=== PATIENT | female | born 1950 | race Hispanic/Latino ===

== ENCOUNTER → 2017-04-04 | Day surgery (SDC) | payer MEDICARE ==
[2017-03-31 14:33] LABS: BASOPHILS # (AUTO) 0.1 (0.0-0.1); BASOPHILS % 0.7 % (0.0-1.0); EOSINOPHILS # (AUTO) 0.2 (0.0-0.4); EOSINOPHILS % 1.9 % (0.0-6.0); HEMATOCRIT 40.3 % (34.2-44.1); HEMOGLOBIN 13.3 g/dL (12.0-16.0); LYMPHOCYTES # (AUTO) 2.4 (1.0-3.2); LYMPHOCYTES % 26.7 % (18.0-39.1); MEAN CORPUSCULAR HEMOGLOBIN 31.3 pg (28-32); MEAN CORPUSCULAR VOLUME 94.8 fL (81-99); MONOCYTES # (AUTO) 0.6 (0.2-0.8); MONOCYTES % 6.8 % (4.4-11.3); NEUTROPHILS # (AUTO) 5.8 (2.1-6.9); NEUTROPHILS % 63.6 % (38.7-80.0); PLATELET COUNT 283 x10e3/uL (140-360); RED BLOOD COUNT 4.25 x10e6/uL (3.6-5.1); RED CELL DISTRIBUTION WIDTH 12.2 % (11.7-14.4)
[2017-03-31 14:56] LABS: ANION GAP 11.9 mmol/L (8-16); BLOOD UREA NITROGEN 9 mg/dL (7-26); BUN/CREATININE RATIO 13 (6-25); CALCIUM 9.7 mg/dL (8.4-10.2); CARBON DIOXIDE 29 mmol/L (22-29); CHLORIDE 104 mmol/L (98-107); CREATININE, SERUM 0.69 mg/dL (0.57-1.11); EST GLOMERULAR FILTRATION RATE > 60 ML/MIN (60-); GLUCOSE 125 mg/dL (74-118); POTASSIUM 3.9 mmol/L (3.5-5.1); SODIUM 141 mmol/L (136-145)
--- NOTE | 2017-03-31 15:24 | Diagnostic Imaging Report ---
PROCEDURE: Frontal and lateral views of the chest. COMPARISON: Patients [facility], , CHEST 2 VIEWS, 02/19/2016, 12:53. INDICATIONS: PREOP FINDINGS: Lines/tubes: None. Lungs: The lungs are well inflated and clear. There is no evidence of pneumonia or pulmonary edema. Pleura: There is no pleural effusion or pneumothorax. Heart and mediastinum: The heart and the mediastinum are normal. Bones: No acute bony abnormality. Degenerative disc changes in the thoracic spine. IMPRESSION: 1. No acute cardiopulmonary abnormalities Eyal Sigala M.D. Dictated by: Eyal Sigala M.D. on 03/31/2017 at 15:32 Electronically approved by: Eyal Sigala M.D. on 03/31/2017 at 15:32
[~2017-04-04] MED LIST: ALIGN4 MG; ASPIR 8181 MG PO; ATENOLOL25 MG PO; BUPIVACAINE 0.25%/EPI 30ML SDV INJ ONE; CALCIUM600 MG PO; DEXAMETHASONE SOD PHOS INJ 4 MG/ML VIAL IV ONE; FENTANYL CITRATE/PF 100MCG/2 ML INJ ONE; FISH OIL500 MG PO; KETOROLAC TROMETHAMINE 30 MG/ML VIAL IV ONE; LIDOCAINE HCL 2% LOCAL INJ 5 ML SDV VIAL INJ ONE; LIDOCAINE PATCH TD; LORAZEPAM1 MG PO; METAXALONE800 MG PO; MIDAZOLAM HCL 2 MG/2 ML VIAL ONE; MOVE FREE PO; NEXIUM PO; ONDANSETRON HCL INJ 2 MG/ML VIAL IV ONE; PROPOFOL IV EMULSION 10 MG/ML 20 ML VIAL IV ONE; SEVOFLURANE INHAL SOLN 250 ML PEN BTL INH ONE; TYLENOL ARTHRITIS PO; VITAMIN B COMP1 EAC1 PO; ZANTAC; [UNRECOGNIZED DRUG - MIXTURE] TOP
--- NOTE | 2017-04-04 16:34 | Operative Report ---
DATE OF PROCEDURE: April 04, 2017 PREOPERATIVE DIAGNOSIS: Mass of the left upper thigh. POSTOPERATIVE DIAGNOSIS: Mass of the left upper thigh. OPERATION PERFORMED: Excision of mass of the left upper thigh. ANESTHESIA: General. COMPLICATIONS: None. ESTIMATED BLOOD LOSS: Minimal. DESCRIPTION OF PROCEDURE: With the patient lying in bed in the supine position under good general anesthesia, the left thigh was prepped with Betadine solution and draped in the usual manner. The area overlying the mass in the left thigh was then infiltrated with 0.25% Marcaine with epinephrine and the incision was made, was carried down through the subcutaneous tissue and immediately, a well-encapsulated multilobulated mass was encountered, which was slowly and carefully from all of the surrounding structures and totally and completely removed and sent for pathological examination. Hemostasis was ascertained and the wound was then closed in layers. The subcutaneous tissue was approximated with interrupted sutures of 3-0 Vicryl and the skin was closed with subcuticular 5-0 Vicryl. Benzoin, Steri-Strips, and dressings were applied. The sponge, lap, and needle count was correct. The patient tolerated the procedure well and returned to the recovery room in stable condition. Job#: [id number] SAK
== END | disposition home or self-care (01) ==
LOC: OR 08:11
PROVIDERS: ATTEND Surgery
DX: D17.24 Benign lipomatous neoplasm of skin and subcutaneous tissue of left leg (principal); I10 Essential (primary) hypertension; Z01.810 Encounter for preprocedural cardiovascular examination; Z01.812 Encounter for preprocedural laboratory examination; Z01.818 Encounter for other preprocedural examination; Z79.82 Long term (current) use of aspirin
CPT/HCPCS: 11403; 12032; 36415; 71020; 80048; 85025; 88304; 93005; J1100; J1885; J2001; J2250; J2405

== ENCOUNTER → 2017-05-26 | Day surgery (SDC) | payer MEDICARE ==
[2017-05-22 14:14] LABS: BASOPHILS # (AUTO) 0.1 (0.0-0.1); BASOPHILS % 0.7 % (0.0-1.0); EOSINOPHILS # (AUTO) 0.2 (0.0-0.4); EOSINOPHILS % 2.5 % (0.0-6.0); HEMATOCRIT 40.5 % (34.2-44.1); HEMOGLOBIN 13.1 g/dL (12.0-16.0); LYMPHOCYTES # (AUTO) 2.4 (1.0-3.2); LYMPHOCYTES % 32.3 % (18.0-39.1); MEAN CORPUSCULAR HEMOGLOBIN 31.6 pg (28-32); MEAN CORPUSCULAR HGB CONC 32.3 g/dL (31-35); MEAN CORPUSCULAR VOLUME 97.8 fL (81-99); MONOCYTES # (AUTO) 0.6 (0.2-0.8); MONOCYTES % 7.6 % (4.4-11.3); NEUTROPHILS # (AUTO) 4.2 (2.1-6.9); NEUTROPHILS % 56.6 % (38.7-80.0); PLATELET COUNT 265 x10e3/uL (140-360); RED BLOOD COUNT 4.14 x10e6/uL (3.6-5.1); RED CELL DISTRIBUTION WIDTH 12.4 % (11.7-14.4)
--- NOTE | 2017-05-22 14:28 | Diagnostic Imaging Report ---
PROCEDURE: Frontal and lateral views of the chest. COMPARISON: 03/31/2017 INDICATIONS: PT HAS NO CHEST COMPLAINTS PRE OP FINDINGS: Lines/tubes: None. Lungs: The lungs are well inflated and clear. There is no evidence of pneumonia or pulmonary edema. Pleura: There is no pleural effusion or pneumothorax. Heart and mediastinum: The heart and the mediastinum are normal. Bones: No acute bony abnormality. Multilevel degenerative changes of the thoracic spine. IMPRESSION: 1. No acute cardiopulmonary disease. Dictated by: Rigo Ghotra M.D. on 05/22/2017 at 14:37 Electronically approved by: Rigo Ghotra M.D. on 05/22/2017 at 14:37
[2017-05-22 14:33] LABS: BLOOD UREA NITROGEN 7 mg/dL (7-26); BUN/CREATININE RATIO 11 (6-25); CALCIUM 9.4 mg/dL (8.4-10.2); CARBON DIOXIDE 28 mmol/L (22-29); CHLORIDE 109 mmol/L (98-107); CREATININE, SERUM 0.66 mg/dL (0.57-1.11); EST GLOMERULAR FILTRATION RATE > 60 ML/MIN (60-); GLUCOSE 129 mg/dL (74-118); SODIUM 143 mmol/L (136-145)
[~2017-05-26] MED LIST changes: +AMLODIPINE BESYL5 MG PO; +ATORVASTATIN CA10 MG PO; +BUPIVACAINE 0.25% 30ML SDV INJ ONE; -BUPIVACAINE 0.25%/EPI 30ML SDV INJ ONE; -DEXAMETHASONE SOD PHOS INJ 4 MG/ML VIAL IV ONE; +DEXAMETHASONE SOD PHOS INJ 4 MG/ML VIAL ONE; +GLYCOPYRROLATE INJ 1MG/ 5 ML SYR ONE; -KETOROLAC TROMETHAMINE 30 MG/ML VIAL IV ONE; +LIDOCAINE 1% W/EPINEPHRINE 20 ML VIAL ONE; +LIDOCAINE HCL 1% LOCAL INJ 20 ML VIAL ONE; +METOCLOPRAMIDE HCL 10 MG/2ML VIAL ONE; +NEOSTIGMINE 5 MG/5ML SYR ONE; -ONDANSETRON HCL INJ 2 MG/ML VIAL IV ONE; +ONDANSETRON HCL INJ 2 MG/ML VIAL ONE; -PROPOFOL IV EMULSION 10 MG/ML 20 ML VIAL IV ONE; +PROPOFOL IV EMULSION 10 MG/ML 20 ML VIAL ONE; +ROCURONIUM BROMIDE 10 MG/ML 5ML VIAL ONE; -SEVOFLURANE INHAL SOLN 250 ML PEN BTL INH ONE; +SEVOFLURANE INHAL SOLN 250 ML PEN BTL ONE; -ZANTAC; +ZANTAC PO
--- OUTSIDE RECORDS SUMMARY | 2017-05-26 09:13 | XMS REPORT ---
Author Author [facility] Address Unknown Phone Unavailable Care Team Providers Care [employer] Name Role Phone WHITNEY HORVATH Unavailable Unavailable Problems This patient has no known problems. Allergies, Adverse Reactions, Alerts This patient has no known allergies or adverse reactions. Medications This patient has no known medications. Results Test Description Test Time Test Comments Text Results Atomic Results Result Comments CHEST 2 VIEWS [place] [address] Patient Name: SAMUEL KESSLER MR #: [id number] : 1950 Age/Sex: 66/F Req #: [id number] Adm Physician: Ordered by: WHITNEY HORVATH MD Report #: [id number] Location: OR Room/Bed: Procedure: [id number] DX/CHEST 2 VIEWS Exam Date: 05/22/17 Exam Time: 1350 REPORT STATUS: Signed PROCEDURE: Frontal and lateral views of the chest. COMPARISON: 03/31/2017 INDICATIONS: PT HAS NO CHEST COMPLAINTS PRE OP FINDINGS: Lines/tubes: None. Lungs: The lungs are well inflated and clear. There is no evidence of pneumonia or pulmonary edema. Pleura: There is no pleural effusion or pneumothorax. Heart and mediastinum: The heart and the mediastinum are normal. Bones: No acute bony abnormality. Multilevel degenerative changes of the thoracic spine. IMPRESSION: 1. No acute cardiopulmonary disease. Dictated by: Namita Ghotra M.D. on 05/22/2017 at 14:37 Electronically approved by: Namita Ghotra M.D. on 05/22/2017 at 14:37 Dictated By: NAMITA GHOTRA MD 36 Transcribed By: JOSEE on 05/22/17 143 COPY TO: WHITNEY HORVATH MD CHEST 2 VIEWS [place] [address] Patient Name: SAMUEL KESSLER MR #: [id number] : 1950 Age/Sex: 66/F Req #: [id number] Adm Physician: Ordered by: WHITNEY HORVATH MD Report #: [id number] Location: OR Room/Bed: Procedure: [id number] DX/CHEST 2 VIEWS Exam Date: 03/31/17 Exam Time: 1430 REPORT STATUS: Signed PROCEDURE: Frontal and lateral views of the chest. COMPARISON: [facility], , CHEST 2 VIEWS, 2015, 12:53. INDICATIONS: PREOP FINDINGS: Lines/tubes: None. Lungs: The lungs are well inflated and clear. There is no evidence of pneumonia or pulmonary edema. Pleura: There is no pleural effusion or pneumothorax. Heart and mediastinum: The heart and the mediastinum are normal. Bones: No acute bony abnormality. Degenerative disc changes in the thoracic spine. IMPRESSION: 1. No acute cardiopulmonary abnormalities Scottie Sigala M.D. Dictated by: Scottie Sigala M.D. on 03/31/2017 at 15:32 Electronically approved by: Scottie Sigala M.D. on 03/31/2017 at 15:32 Dictated By: SCOTTIE SIGALA MD 31 Transcribed By: JOSEE on 03/31/171531 COPY TO: WHITNEY HORVATH MD MRI SPINE THORACIC WO [place] [address] Patient Name: SAMUEL KESSLER MR #: [id number] : 1950 Age/Sex: 66/F Req #: [id number] Adm Physician: Ordered by: WHITNEY HORVATH MD Report #: [id number] Location: MRI Room/Bed: Procedure: [id number] MRI/MRI SPINE THORACIC WO Exam Date: 03/21/17 Exam Time: 1420 REPORT STATUS: Signed Examination: MRI SPINE THORACIC WITHOUT CONTRAST History: Back pain. Comparison studies: None Technique: Sagittal T1 and STIR; axial, sagittal and coronal T2 Intravenous contrast: None. Findings: Alignment: Normal kyphosis. No scoliosis. Thoracic cord: Normal in signal and morphology. The tip of the conus is at T12-L1. Soft tissues: There is a 2.9 x 2.6 x 2.3 cm ( superoinferior x anteroposterior x transverse dimensions) T1, T2 and STIR hypointense lesion of the medial limb of left adrenal gland. Paraspinal muscles: Preserved. No volume loss. Vertebrae: No compression fractures , infection or neoplasm. There is a rounded, 10mm T1 and T2 hyperintense and STIR hypointense T9 vertebral body lesion. There is no associated erosion of the adjacent endplate or expansion of the bone. Degenerative changes: T7-T8: Diffuse disc bulge. No foraminal or canal stenosis. The remaining thoracic levels demonstrate no degenerative disc or foraminal or canal stenosis. IMPRESSION: 1. A 2.9 x 2.6 x 2.3 cm lesion of the medial limb of the left adrenal gland. A contrast enhanced CT of the abdomen is recommended for further evaluation. 2. Mild degenerative changes at T7- T8 without canal stenosis. Signed by: Dr. Adrian Sherwood M.D. on 2016 7:37 AM Dictated By: ADRIAN EASLEY MD 6 Transcribed By: MADDI on 03/22/17736 COPY TO: WHITNEY HORVATH MD MRI SPINE LUMBAR WO [place] [address] Patient Name: SAMUEL KESSLER MR #: [id number] : 1950 Age/Sex: 66/F Req #: [id number] Adm Physician: Ordered by: WHITNEY HORVATH MD Report #: [id number] Location: MRI Room/Bed: Procedure: [id number] MRI/MRI SPINE LUMBAR WO Exam Date: 03/21/17 Exam Time: 1420 REPORT STATUS: Signed Examination: MRI SPINE LUMBAR WITHOUT CONTRAST History: Nonradiating back pain. Comparison studies: None Technique: Sagittal, coronal and axial T2 , sagittal T1 and STIR; axial spin density oblique. Findings: Number of lumbar vertebral bodies: Five. Alignment: Normal lordosis. No scoliosis. Soft tissues: No T2 hyperintense inflammatory changes. Posterior paraspinal soft tissues and muscles: No abnormality. Lower thoracic cord: Normal in signal and morphology. The tip of the conus is at T12-L1 . Cauda equina: No masses. No arachnoiditis. Vertebrae: No fractures, infection or neoplasm. There is a rounded, 11mm T1 and T2 hyperintense and STIR hypointense L3 vertebral body lesion. There is no associated erosion of the adjacent endplate or expansion of the bone. Degenerative changes: L1-L2: No abnormalities. L2-L3: Diffuse disc bulge. No foraminal or canal stenosis. L3-L4: No abnormalities. L4-L5: Diffuse bulge and mild bilateral facet degenerative. No canal stenosis. L5-S1: Asymmetric to the right and moderate bilateral facet arthropathy results in moderate right and mild left neural foraminal narrowing. No canal stenosis. IMPRESSION: 1. Mild degenerative changes at L2-L3, L4-L5 and L5-S1 without canal stenosis. 2. Moderate right foraminal narrowing at L5-S1. 3. 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 Signed by: Dr. Adrian Sherwood M.D. on 03/22/2017 7:43 AM Dictated By: ADRIAN EASLEY MD [id number] Transcribed By: MADDI on 03/22/1743 COPY TO: WHITNEY HORVATH MD
--- NOTE | 2017-05-26 11:06 | Operative Report ---
DATE OF PROCEDURE: May 26, 2017 PREOPERATIVE DIAGNOSIS: Back masses times 3, probable lipomas. POSTOPERATIVE DIAGNOSIS: Back masses times 3, probable lipomas. OPERATION PERFORMED: Excision of back masses times 3. ANESTHESIA: General. COMPLICATIONS: None. ESTIMATED BLOOD LOSS: Minimal. DESCRIPTION OF PROCEDURE: With the patient lying in bed in the prone position, under general anesthesia, the back was prepped with Betadine solution and draped in the usual manner. There were 3 separate masses, 1 on the left mid back and 2 on the right lateral back that were palpable. The 3 masses were done in similar fashion. An incision was made. It was carried down into the subcutaneous tissue. The mass was identified and then totally and completely encircled and removed. These were poorly encapsulated, lipomatous masses that were resected and sent for pathological examination. Perfect hemostasis was ascertained. All wounds were then infiltrated with 1/4 percent Marcaine solution. The subcutaneous tissue was approximated with 3-0 Vicryl, and the skin was closed with subcuticular 5-0 Vicryl. Benzoin, Steri-Strips and dressings were applied. Patient tolerated all 3 procedures well and returned to the recovery room in stable condition. Job#: [id number]
== END | disposition home or self-care (01) ==
LOC: OR 09:10
PROVIDERS: ATTEND Surgery
DX: D17.1 Benign lipomatous neoplasm of skin and subcutaneous tissue of trunk (principal); I10 Essential (primary) hypertension; E78.5 Hyperlipidemia, unspecified; R00.1 Bradycardia, unspecified; M54.2 Cervicalgia; M54.9 Dorsalgia, unspecified; K21.9 Gastro-esophageal reflux disease without esophagitis; F41.9 Anxiety disorder, unspecified; Z01.810 Encounter for preprocedural cardiovascular examination; Z01.812 Encounter for preprocedural laboratory examination; Z01.818 Encounter for other preprocedural examination
CPT/HCPCS: 11400 ×3; 12031; 36415 ×2; 71046; 80048; 84132; 85025; 88304; 93005; J1100; J2001; J2250; J2405; J2765

== ENCOUNTER → 2018-08-17 | Day surgery (SDC) | payer MEDICARE ==
[~2018-08-17] MED LIST changes: -BUPIVACAINE 0.25% 30ML SDV INJ ONE; +BUSPIRONE HCL5 MG PO; +CARAFATE1 GM/10 ML PO; +CHROMIUM PICO200 MC1 PO; -DEXAMETHASONE SOD PHOS INJ 4 MG/ML VIAL ONE; +DEXILANT30 MG PO; +ESTRACE42.5 GM TOP; -GLYCOPYRROLATE INJ 1MG/ 5 ML SYR ONE; -LIDOCAINE 1% W/EPINEPHRINE 20 ML VIAL ONE; -LIDOCAINE HCL 1% LOCAL INJ 20 ML VIAL ONE; -METOCLOPRAMIDE HCL 10 MG/2ML VIAL ONE; -NEOSTIGMINE 5 MG/5ML SYR ONE; -ONDANSETRON HCL INJ 2 MG/ML VIAL ONE; -ROCURONIUM BROMIDE 10 MG/ML 5ML VIAL ONE; -SEVOFLURANE INHAL SOLN 250 ML PEN BTL ONE; +[UNRECOGNIZED DRUG - OTHER] PO; +[UNRECOGNIZED DRUG - OTHER] TOP; +[UNRECOGNIZED DRUG - OTHER] TOP; +[UNRECOGNIZED DRUG - OTHER] TOP
[2018-08-17 10:00] VITALS: BP 141/71
== END | disposition home or self-care (01) ==
LOC: OR 06:40
PROVIDERS: ATTEND Surgery
DX: K59.00 Constipation, unspecified (principal); K57.30 Diverticulosis of large intestine without perforation or abscess without bleeding; K56.699 Other intestinal obstruction unspecified as to partial versus complete obstruction; K64.8 Other hemorrhoids; K21.9 Gastro-esophageal reflux disease without esophagitis; I10 Essential (primary) hypertension; Z01.810 Encounter for preprocedural cardiovascular examination
CPT/HCPCS: 45378; 93005; J2001; J2250; J2704

== ENCOUNTER → 2018-11-01 | Outpatient (CLI) | payer MEDICARE ==
[~2018-11-01] MED LIST changes: +DIATRIZOATE MEGL/DIATRIZOA SOD 30 ML BTL PO ONE; -FENTANYL CITRATE/PF 100MCG/2 ML INJ ONE; +IOPAMIDOL 370 MG/ML 200 ML INFUS..BTL INJ ONE; -LIDOCAINE HCL 2% LOCAL INJ 5 ML SDV VIAL INJ ONE; -MIDAZOLAM HCL 2 MG/2 ML VIAL ONE; -PROPOFOL IV EMULSION 10 MG/ML 20 ML VIAL ONE; +SODIUM CHLORIDE 0.9% 50ML 50 ML ONE
[2018-11-01 15:24] LABS: BLOOD UREA NITROGEN 7 mg/dL (7-26); BUN/CREATININE RATIO 12 (6-25); EST GLOMERULAR FILTRATION RATE > 60 ML/MIN (60-)
--- NOTE | 2018-11-01 16:43 | Diagnostic Imaging Report ---
ADDENDUM #1 Adrenal Nodule in Findings should be in Impression: 2.7 x 2.4 cm left adrenal nodule. No right adrenal nodule. RECOMMENDATIONS: Adrenal mass protocol CT for further evaluation. Signed by: Cindy Mace MD on 11/05/2018 10:02 AM ORIGINAL REPORT EXAM: CT Abdomen and Pelvis WITH intravenous contrast INDICATION: Abdominal pain COMPARISON: None. TECHNIQUE: Abdomen and pelvis were scanned utilizing a multidetector helical scanner from the lung base to the pubic symphysis after administration of IV contrast. Coronal and sagittal reformations were obtained. Routine protocol was performed. Scan was performed when during portal venous phase. IV CONTRAST: 100mL of Isovue 370 ORAL CONTRAST: Water COMPLICATIONS: None RADIATION DOSE: Total DLP: 463.3 mGy*cm Dose modulation, iterative reconstruction, and/or weight based adjustment of the mA/kV was utilized to reduce the radiation dose to as low as reasonably achievable. FINDINGS: LOWER THORAX: Normal. HEPATOBILIARY: No focal hepatic lesions. No biliary ductal dilatation. Status post cholecystectomy. SPLEEN: No splenomegaly. PANCREAS: No focal masses or ductal dilatation. ADRENALS: 2.7 x 2.4 cm left adrenal nodule. No right adrenal nodule. KIDNEYS/URETERS: No hydronephrosis or renal calculi. Left kidney lower pole 2.5 cm cyst. PELVIC ORGANS/BLADDER: 2.5 x 2.1 cm left adnexal cyst. Phleboliths in the pelvis. PERITONEUM / RETROPERITONEUM: No free air or fluid. LYMPH NODES: No lymphadenopathy. VESSELS: Atherosclerotic calcifications of the abdominal aorta and major branches. GI TRACT: No distention or wall thickening. Normal appendix. BONES AND SOFT TISSUES: Mild degenerative changes of the visualized spine. No suspicious lytic or blastic lesions. IMPRESSION: No acute findings in the abdomen or pelvis. 2.5 x 2.1 cm left adnexal cyst is almost certainly benign. No follow-up imaging recommended. Signed by: Cindy Mace MD on 11/01/2018 4:40 PM
== END ==
LOC: CT 14:32
PROVIDERS: ATTEND Internal Medicine Gastroenterology
DX: R10.32 Left lower quadrant pain (principal); R14.0 Abdominal distension (gaseous)
CPT/HCPCS: 36415; 74177; 82565; 84520; Q9967

== ENCOUNTER → 2018-12-13 | Outpatient (CLI) | payer MEDICARE ==
[~2018-12-13] MED LIST changes: -DIATRIZOATE MEGL/DIATRIZOA SOD 30 ML BTL PO ONE; -IOPAMIDOL 370 MG/ML 200 ML INFUS..BTL INJ ONE; -SODIUM CHLORIDE 0.9% 50ML 50 ML ONE
--- NOTE | 2018-12-18 09:30 | Diagnostic Imaging Report ---
#[id number] - [id number] #BILATERAL DIGITAL SCREENING MAMMOGRAM WITH CAD: 12/13/2018 CLINICAL: Routine screening. Comparison is made to exam dated: 02/24/2016 mammogram - [facility]. Current study contains 4 films. The tissue of both breasts is predominantly fatty. Current study was also evaluated with a Computer Aided Detection (CAD) system. Benign appearing calcifications are noted bilaterally. There is benign, stable nodularity in both breasts. No significant masses, calcifications, or other findings are seen in either breast. IMPRESSION: BENIGN There is no mammographic evidence of malignancy. A 1 year screening mammogram is recommended. The patient will be notified by letter of the results. ALMA SAGASTUME M.D. ct/penrad:12/14/2018 17:55:37 Facility Maintenance Technician: Barb JUAREZ)([place]), [facility] letter sent: Normal Exam Mammogram BI-RADS: 2 Benign
== END ==
LOC: MAMMO 15:03
PROVIDERS: ATTEND Obstetrics & Gynecology
DX: Z12.31 Encounter for screening mammogram for malignant neoplasm of breast (principal)
CPT/HCPCS: 77067

== ENCOUNTER → 2019-11-27 | Outpatient (CLI) | payer MEDICARE | LOC: CARD 13:48 | PROVIDERS: ATTEND Otolaryngology | DX: J30.9 Allergic rhinitis, unspecified (principal); H93.A9 Pulsatile tinnitus, unspecified ear | CPT/HCPCS: 93880 ==

== ENCOUNTER → 2024-03-12 | Outpatient (REF) | payer MEDICARE ==
[~2024-03-12] MED LIST changes: +ACETAMINOPHEN 325 MG TAB ONE; +ASPIRIN81 MG PO; +CALCIUM PO; +CHROMIUM400 MCG PO; +GAS RELIEF80 MG PO; +HYDROCHLOROTHIA25 MG PO; +IOPAMIDOL 370 MG/ML 100 ML INFUS..BTL INJ ONE; +LINZESS72 MCG; +METOPROLOL TARTRATE INJ 1 MG/ML VIAL ONE; +NITROGLYCERIN 0.4 MG SUBL ONE; +OMEGA 3 FISH O1 EACH PO; +PRESERVISION A1 EACH PO; +SODIUM CHLORIDE 0.9% 100 ML ONE; +VITAMIN C1000 MG PO
[2024-03-12 10:50] LABS: CREATININE, SERUM 0.69 mg/dL (0.57-1.11)
== END ==
LOC: CT 09:30
PROVIDERS: ATTEND Internal Medicine Cardiovascular Disease
DX: I20.9 Angina pectoris, unspecified (principal); R94.39 Abnormal result of other cardiovascular function study
CPT/HCPCS: 36415; 75574; 75580; 82565; 84520; J7050; Q9967